=== PATIENT | male | born 1970 | race Caucasian/White ===

== ENCOUNTER 2017-03-24 11:34 | Emergency (ER) | payer SELFPAY ==
[2017-03-24 12:05] VITALS: BP 116/73
[2017-03-24 13:47] LABS: Urine Bilirubin Negative (NEGATIVE); Urine Blood Negative /ul (NEGATIVE); Urine Ketone Negative (NEGATIVE); Urine Nitrite Negative (NEGATIVE); Urine Protein 15 mg/dL (NEGATIVE); Urine Specific Gravity 1.025 SP.GR. (1.005-1.030); Urine Urobilinogen Normal (NORMAL)
[2017-03-24 13:56] LABS: Urine Appearance Clear; Urine Color Yellow
[2017-03-24 13:57] LABS: Urine Bacteria None Seen; Urine RBC None Seen /hpf (0-5); Urine WBC 0-5 /hpf (0-5)
--- NOTE | 2017-03-24 14:13 | ERNOTE ---
ER Male HPI Date of Service: 03/24/17 Stated Complaint: KIDNEY STONE ER Male: other - L flank pain Time Seen by Provider: 03/24/17 13:36 Source: patient Exam Limitations: no limitations Immunizations: IMMUNIZATION HX Immunizations Up to Date Yes History of Influenza Vaccine No Hx Pneumococcal Vaccination No Allergies/Adverse Reactions: Allergies amoxicillin Allergy (Intermediate, Verified 03/24/17 12:06) Hives Home Medications: HOME MEDICATIONS NK [No Home Medication] 03/24/17 [Last Taken Unknown] - History of Present Illness Narrative: Pt. comes in with c/o intermittent L flank pain for a week. Pt. denies any SOB , CP, NVD, fever, dysuria, but does state that it is resolved as of 10 am this morning without any treatment. Timing: Present: resolved prior to arrival Quality: Present: mild, aching Review of Systems - Review of Systems Constitutional: Present: no symptoms reported. Absent: fever, chills, weakness , fatigue, malaise EYE: Present: no symptoms reported ENT: Present: no symptoms reported Respiratory: Present: no symptoms reported. Absent: shortness of breath, cough , wheezing Cardiology: Present: no symptoms reported. Absent: chest pain, palpitations, edema Gastrointestinal/Abdominal: Present: no symptoms reported. Absent: nausea, vomiting, diarrhea Genitourinary: Present: pain - L flank. Absent: decreased urinary output Musculoskeletal: Present: no symptoms reported. Absent: back pain, neck pain Skin: Present: no symptoms reported. Absent: rash, change in hair/nails Neurological: Present: no symptoms reported. Absent: headache, dizziness/light- headedness, numbness, tingling Endocrine: Present: no symptoms reported Hematologic/Lymphatic: Present: no symptoms reported All Other Systems: All systems neg except as marked - Patient's Past Medical History Patient History - Medical: No pertinent hx Patient History - Cardiac/Respiratory: No pertinent hx Patient History - Cancer: No Hx of Cancer Patient History - Surgical Procedures: No surgical history Patient History - Other: None - Family History Mother Family History - Medical: Diabetes Type 1 Brother Family History - Medical: Kidney stone - Social History Living Situations: home Abuse History: No History of abuse Psych History: No pertinent hx Smoking Status: Current every day smoker Have you smoked in the past 12 months: No Do you dip or chew tobacco: No Alcohol Use: none Drug Use: marijuana, meth - Immunizations Immunizations Up to Date: Yes Hx Pneumococcal Vaccination: No History of Influenza Vaccine: No Physical Exam - Physical Exam General Appearance: Present: wd/wn, alert, no apparent distress Head Exam: Present: normal inspection, no evidence of injury Eye Exam: Normal inspection: bilateral Respiratory: Present: no respiratory distress, normal breath sounds, no accessory muscle use, chest nontender, lungs clear Cardiovascular/Chest: Present: regular rate, rhythm, no murmur, normal peripheral pulses Gastrointestinal/Abdominal: Present: normal bowel sounds, nondistended, soft, tenderness - LUQ Back Exam: Present: normal inspection, normal range of motion, no CVA tenderness , no vertebral tenderness Neurological Exam: Present: alert, oriented, normal mood/affect, no motor/ sensory deficits Skin Exam: Present: normal color, warm/dry. Absent: pallor, skin rash ED Progress - Results and Orders Patient's Lab Results:: I have reviewed the patient's lab results. Results and Orders: Abnormal Lab Results 03/24/17 Range/Units 13:39 Urine Protein 15 H (NEGATIVE) mg/dL - Vital Signs Patient's Vital Signs:: I have reviewed the patient's vital signs. Vital Signs: Vital Signs 03/24/17 12:00 Temperature 36.8 C Pulse Rate 76 Respiratory 18 Rate Blood Pressure 116/73 O2 Sat by Pulse 99 Oximetry - Progress/Reassessment Chief Complaint: Genitourinary Problem Departure Clinical Impression: Back pain Qualifiers: Back pain location: thoracic back pain Chronicity: acute Back pain laterality: left Qualified Code(s): M54.6 - Pain in thoracic spine - Departure Disposition: Home self-care Condition: Good Instructions: Flank Pain, [id number] Additional Instructions: Please find and establish with primary provider of your choice if symptoms continue.
[2017-03-24 14:26] LABS: Hematocrit 41.7 % (42.0-52.0); Hemoglobin 14.1 gm/dL (13.5-18.0); Mean Cell Volume 88.5 fl (78-100); Mean Corpuscular Hemoglobin 29.9 pg (27-31); Mean Corpuscular Hgb Conc 33.8 g/dl (32-36); Mean Platelet Volume 9.2 fl (6.0-9.5); Platelet Count 297 K/mm3 (150-450); Red Blood Count 4.71 M/mm3 (4.7-6.0); Red Cell Distribution Width 13.3 % (11.5-14.0); White Blood Count 3.8 K/mm3 (4.0-10.5)
[2017-03-24 14:32] LABS: Total Cells Counted 100
[2017-03-24 14:38] LABS: Anion Gap 9.8 mmol/L (6.8-13.8); BUN/Creatinine Ratio 17.6 (9.0-21.6); Calcium * 8.8 mg/dL (7.9-10.9); Carbon Dioxide 29.7 mmol/L (24-32.6); Potassium 3.5 mmol/L (3.4-4.6)
[2017-03-24 15:18] LABS: Atypical (Reactive) Lymph 5 % (0-2); Eosinophil 1 % (0-3); Lymphocyte 24 % (20-51); Monocyte 15 % (0-9); Neutrophil 55 % (42-75); Neutrophil # 2.1 K/mm3 (1.3-6.0)
[2017-03-24 15:19] LABS: Platelet Estimate Normal (NORMAL)
[2017-03-24 15:20] LABS: RBC Morphology Normal (NORMAL)
== END 2017-03-24 15:05 | disposition home or self-care (01) ==
LOC: ER 11:34
DX: M54.6 Pain in thoracic spine (principal); F17.200 Nicotine dependence, unspecified, uncomplicated